=== PATIENT | female | born 1955 | race Caucasian/White ===

== ENCOUNTER 2018-12-25 08:32 | Emergency (ER) | payer OTHER, SELFPAY ==
[2018-12-25 08:32] VITALS: BP 114/85; PULSE 84; RESP 17; TEMP 36.7; O2SAT 97; BMI 19.3
--- NOTE | 2018-12-25 08:46 | RAD_ITS ---
EXAM DESCRIPTION: PORTABLE AP CHEST CLINICAL HISTORY: 63 years Female, cough weakness COMPARISON: None FINDINGS: The thorax is intact. The heart and mediastinum appear to be within normal limits. The lungs appear to be well areated without evidence of pneumonic consolidation or pleural effusion. RAD/Chest 1 View (Portable) IMPRESSION: Normal portable chest. Electronically Signed: Chace Freeman, at 9:04 EDT Tel , Service support ,
--- NOTE | 2018-12-25 08:46 | EKG12_ITS ---
Test Reason : Blood Pressure : / mmHG Vent. Rate : 075 BPM Atrial Rate : 075 BPM P-R Int : 126 ms QRS Dur : 080 ms QT Int : 366 ms P-R-T Axes : 077 028 062 degrees QTc Int : 408 ms Normal sinus rhythm Right atrial enlargement Nonspecific ST abnormality Abnormal ECG Confirmed by KENNEDI ROSEN, MARCIE ([id number]), senior technical editor TSERING HATCH ([id number] on 12/31/2018 9:32:42 AM Referred By: SANTOS
--- NOTE | 2018-12-25 08:48 | ED.DCSUM_ITS ---
- ER Visit Summary Date of Service: 12/25/18 Chief Complaint: Weakness History of Present Illness: The patient is a 63 F with generalized weakness. Symptoms started about 5 days ago. She felt tired, had fevers, and shakes. She is gradually getting better but has continued weakness. She was having some low back pain intermittently. Denies any urinary symptoms. Denies GI symptoms. She has a dry cough. Denies any other respiratory symptoms. Denies chest pain. Denies any past medical history or surgical history. She takes no prescribed medications. Physical Examination: Afebrile and vital signs unremarkable. Patient alert and oriented. No acute distress. HEENT exam grossly unremarkable. Heart regular rate and rhythm. Lungs clear. Abdomen soft and nontender. No guarding or rebound. Skin appears normal. Extremities nontender with no edema. Test Results: EKG, chest x-ray, basic labs, urinalysis pending. Emergency Department Course and Treatment: White count 17.3. BUN 29, creatinine 1.42. Urinalysis shows signs of infection. Troponin normal. EKG showed nonspecific ST-T wave changes. Sinus rhythm. Chest x-ray normal. Patient has a urinary tract infection. She has an elevated white count, but no other signs of sepsis. Her creatinine is elevated, but I do not have baseline labs to compare. She received fluids here. She is stable. She is overall feeling well and would like to go home. We talked about risks and benefits. We will treat with Rocephin here. Urine culture pending. We will send the patient home on a prescription for Keflex. Patient was advised that she will need follow-up to recheck her kidney function. She was also advised that she may develop sepsis. If she has fevers or any worsening symptoms, she should return right away. If she has difficulty following up, she should return right away. Risks of sepsis and worsening infections were discussed. Treatment Plan: As above Disposition: Discharge Impression: 1. UTI 2. Leukocytosis 3. Elevated creatinine This note was generated with [employer] dictation software. It may contain incorrect words, spelling, and punctuation that were not noted in review of the chart prior to signing ED Disposition - Plan for ED Patient: Referrals: Care Physician,No Primary [Primary Care Provider] -
--- NOTE | 2018-12-25 08:48 | NURSING ---
NO OLD EKGS
[2018-12-25] MEDS: 0.9% Normal Saline 1,000 ML 1000 ML IV (09:18)
[2018-12-25 09:21] LABS: Absolute Lymphocyte Count 1.46 X10^3/uL (0.83-4.51); Absolute Neutrophil Count 14.5 X10^3/uL (2.0-7.7); Basophil# 0.07 X10^3/uL; Basophil% 0.4 % (0-1); Eosinophil# 0.01 X10^3/uL; Eosinophils% 0.1 % (0-5); Hematocrit 44.1 % (37-47); Hemoglobin 14.6 g/dL (12.0-15.0); Lymphocyte # 1.46 X10^3/ul (4.0); Lymphocyte % 8.4 % (19-41); Mean Corp Hgb Conc 33.1 g/dL (32-36); Mean Corpuscular Hgb 28.5 pg (27.0-32.0); Mean Platelet Vol. 10.8 fl (6.2-12.0); Monocyte# 1.16 X10^3/uL; Monocyte% 6.7 % (0-10); NRBC Flagged by Analyzer 0 % (0-5); Neutrophil # 14.52 X10^3/uL (2.7-7.7); Neutrophil % 83.8 % (47-70); Platelet Count 261 K/mm3 (150-450); RBC Distribution Width CV 13.2 % (11.6-14.6); RBC Distribution Width SD 40.7 fl (35.1-43.9); Red Blood Count 5.13 M/mm3 (4.2-5.4); White Blood Count 17.3 K/mm3 (4.4-11.0)
[2018-12-25 09:25] LABS: Mucous, Urine 0 SEEN /hpf (<or=2+)
[2018-12-25 09:33] LABS: Color, Urine Yellow (Yellow); Glucose, Dipstick Normal (Normal); Ketone-Dipstick Negative (Negative); Leukocyte Esterase-Dipstick 500 /ul (Negative); Nitrite-Dipstick Positive (Negative); Occult Blood-Urine 150 /ul (Negative); Protein-Dipstick 100 mg/dl (Negative); Specific Gravity, Urine 1.015 (1.002-1.030); Urine Bilirubin Dipstick Negative (Negative); Urine Clarity Sl. Cloudy (Clear); Urine Urobilinogen Normal (Normal)
[2018-12-25 09:45] LABS: Anion Gap 12 (5-15); BUN 29 mg/dL (7-18); BUN/Creat Ratio 20.4 RATIO (10-20); Chloride 104 mmol/L (98-107); Creatinine, Serum 1.42 mg/dL (0.55-1.02); EST Glomerular Filtration Rate 40 mL/min (>60); Est Glom Filt Rate - Afr Amer 48 mL/min (>60); Estimated Creatinine Clearance 30.33 ml/min; Glucose 164 mg/dL (74-106); Potassium 3.9 mmol/L (3.5-5.1); Sodium Level 143 mmol/L (136-145); Thyroid Stim Hormone (TSH) 1.79 uIU/mL (0.358-3.74)
[2018-12-25 09:45] LABS: Bacteria 2+ /hpf (None Seen); Red Blood Cells-Urine 0-5 SEEN /hpf (0-5); Squamous Epithelial Cells - UA 0-5 SEEN /hpf (5-10); White Blood Cells 50-100 SEEN /hpf (0-5)
--- NOTE | 2018-12-25 10:18 | ED.DEP ---
ED Disposition - Plan for ED Patient: Instructions: Understanding Urinary Tract Infections (UTIs) Prescriptions: Cephalexin [Keflex] 500 mg PO Q6 #40 cap Prescription Printed Referrals: Brianna Alba MD [COURTESY STAFF PHYSICIAN] -
[2018-12-25] MEDS: Ceftriaxone 1 GM/50 ML BAG IV (10:22)
[2018-12-25 11:02] VITALS: BP 120/75; PULSE 79; RESP 16; O2SAT 96
== END 2018-12-25 11:11 | disposition home or self-care (01) ==
PROVIDERS: Emergency Provider Emergency Medicine
DX: N39.0 Urinary tract infection, site not specified (principal); D72.829 Elevated white blood cell count, unspecified; R79.89 Other specified abnormal findings of blood chemistry; R05 Cough
CPT/HCPCS: 71045; 80048; 81001; 84443; 84484; 85025; 87086; 87088; 87186; 93005; 96361; 96365; 99283; J7030; A4216

== ENCOUNTER 2018-12-29 08:25 | Emergency (ER) | payer OTHER, SELFPAY ==
[2018-12-29 08:26] VITALS: BP 124/83; PULSE 83; RESP 18; TEMP 36.8; O2SAT 98; BMI 20.1
--- NOTE | 2018-12-29 08:35 | ED.VISSUMM ---
- ER Visit Summary Date of Service: 12/29/18 Chief Complaint: wants kidney function rechecked History of Present Illness: The patient is a 63 F who would like her kidney function rechecked. She was seen here 4 days and diagnosed with a UTI. Her creatinine is 1.42 at that time. She is here to make sure that it is improving. She was placed on Keflex after receiving Rocephin here for the UTI. She is feeling better. Denies fevers. No history of any kidney issues in the past. She does have some slight suprapubic tenderness at times but it is intermittent. She does not have a doctor but was given a PCP to follow-up with last week. Physical Examination: Vital signs reviewed. HEENT exam unremarkable. Heart is regular rate and rhythm without murmurs. Lungs are clear to auscultation. Abdomen is soft and nontender. Extremities reveal no edema. Skin exam normal. Neurologic exam normal. Test Results: Creatinine 1.07 Emergency Department Course and Treatment: The patient's creatinine is improving. She feels fine. She will continue her antibiotics and will hydrate at home. She will call Dr. Alba for follow-up Treatment Plan: [] Disposition: Discharge Impression: RAJWINDER, improving This note was generated with [employer] dictation software. It may contain incorrect words, spelling, and punctuation that were not noted in review of the chart prior to signing ED Disposition - Plan for ED Patient: Referrals: Care Physician,No Primary [Primary Care Provider] -
[2018-12-29 09:13] LABS: Anion Gap 6 (5-15); BUN 17 mg/dL (7-18); BUN/Creat Ratio 15.9 RATIO (10-20); Calcium,Total 8.9 mg/dL (8.5-10.1); Chloride 99 mmol/L (98-107); Creatinine, Serum 1.07 mg/dL (0.55-1.02); EST Glomerular Filtration Rate 55 mL/min (>60); Est Glom Filt Rate - Afr Amer 66 mL/min (>60); Estimated Creatinine Clearance 41.84 ml/min; Glucose 115 mg/dL (74-106); Potassium 3.5 mmol/L (3.5-5.1); Sodium Level 136 mmol/L (136-145)
--- NOTE | 2018-12-29 09:21 | ED.DEP ---
ED Disposition - Plan for ED Patient: Disposition: Home or Assisted Living Instructions: Understanding Urinary Tract Infections (UTIs) Referrals: Care Physician,No Primary [Primary Care Provider] - Brianna Alba MD [COURTESY STAFF PHYSICIAN] -
== END 2018-12-29 10:00 | disposition home or self-care (01) ==
PROVIDERS: Emergency Provider Emergency Medicine
DX: N17.9 Acute kidney failure, unspecified (principal); Z87.440 Personal history of urinary (tract) infections
CPT/HCPCS: 80048; 99282

== ENCOUNTER → 2019-03-25 08:31 | Outpatient (CLI) | payer OTHER, SELFPAY ==
--- NOTE | 2019-03-25 08:34 | BI_ITS ---
MAMMOGRAPHY - BILATERAL SCREENING REASON FOR EXAM: Female, 63 years old. Routine annual screening examination. PERTINENT HISTORY: Non-contributory. TECHNIQUE: Digital bilateral breast archana (3D mammographic acquisition) in the CC and MLO projections. 2-D mediolateral oblique (MLO) and craniocaudad (CC) views of both breasts were obtained. CAD: Full Field Digital Mammography with Computer Added Detection was performed. COMPARISON: Comparison is made with prior outside examination dated October 05, 2015. FINDINGS: Breast Composition: The breasts are heterogeneously dense, which may obscure small masses. There are no dominant masses or suspicious calcifications. No other significant abnormalities are identified. There has been no significant change since the prior study. BI/SCREEN MAMM (CAD) W/ARCHANA BILAT IMPRESSION: Stable bilateral screening mammogram. Yearly follow-up mammogram recommended. (A) ASSESSMENT CATEGORY: BIRADS Category 1: Negative. A letter regarding these results will be sent to the patient by the facility within 30 days. Approximately 10% of breast cancers are not detected by mammography. A normal mammogram should not delay biopsy of a clinically suspicious abnormality. [id number] Electronically Signed: Geoff Zelaya, at 12:06 EST , Service support ,
--- NOTE | 2019-03-25 08:51 | BD_ITS ---
STUDY: DUAL ENERGY X-RAY ABSORPTIOMETRY / DXA REASON FOR EXAM: Female, 63 years old. KITCHEN LEAD -- DOES HIGH AMOUNT OF EXERCISE -- CAPO OF 0.5 INCH TECHNIQUE: Bone Mineral Density (BMD) measurements of lumbar spine and bilateral hips were obtained. COMPARISON: None. FINDINGS: Lumbar Spine (L1-L4): g/cm2 (1.071) / T-score (-0.8) / Z-score (0.8) Findings are suggestive of normal bone density with a low fracture risk. Left Femur Total: g/cm2 (0.779) / T-score (-1.8) / Z-score (-0.6) Left Femoral Neck: g/cm2 (0.749) / T-score (-2.1) / Z-score (-0.6) Right Femur Total: g/cm2 (0.730) / T-score (-2.2) / Z-score (-1.0) Right Femoral Neck: g/cm2 (0.700) / T-score (-2.4) / Z-score (-1.0) BD/Dexa Bone Density Study IMPRESSION: The patient is considered osteopenic as outlined below according to World Riki Organization (WHO) criteria with a high fracture risk. Reference Information: The T-score is the number of standard deviations above or below the standard which is normal for young adults at their peak bone mineral density. The World Health Organization (WHO) interprets the T-scores as follows: Above -1 Normal bone density Between -1 and -2.5 Osteopenia Equal to / or below -2.5 Osteoporosis As a practical clinical guideline, osteopenia may be graded as follows: Mild -1 through -1.5 Moderate -1.6 through -2.0 Severe -2.1 through -2.4 The Z-score is the number of standard deviations above or below age-matched controls. A Z-score of less than -1.5 would be considered abnormal. References: 1. NIH Osteoporosis and Related Bone Diseases http://www.osteo.org 2. International Society for Clinical Densitometry http://www.iscd.org 3. National Osteoporosis Foundation http://www.nof.org Electronically Signed: Geoff Zelaya, at 9:45 EST , Service support ,
== END ==
PROVIDERS: Family Provider Nurse Practitioner; PCP Nurse Practitioner; Referring Provider Nurse Practitioner; Visit Provider Nurse Practitioner
DX: Z12.31 Encounter for screening mammogram for malignant neoplasm of breast (principal); Z78.0 Asymptomatic menopausal state; M85.80 Other specified disorders of bone density and structure, unspecified site
CPT/HCPCS: 77063; 77067; 77080